=== PATIENT | male | born 1950 | race Two or more races ===

== ENCOUNTER 2023-09-23 05:30 | Day surgery (SDC) | payer OTHER ==
[2023-09-17 08:23] LABS: HEMATOCRIT 40.4 % (39.0-48.0); HEMOGLOBIN 13.7 g/dL (13-16.00); MEAN CELL VOLUME 91.5 fL (80.0-100.00); MEAN CORPUSCULAR HGB CONC 33.8 g/dl (32.0-36.0); PLATELET COUNT 227 K/uL (150-450); RED BLOOD COUNT 4.42 M/uL (4.00-6.00); RED CELL DISTRIBUTION WIDTH 13.9 % (11.5-14.5)
[2023-09-17 08:24] LABS: URINE APPEARANCE Clear; URINE BILIRRUBIN Negative (NEGATIVE); URINE BLOOD Negative; URINE COLOR Yellow; URINE GLUCOSE Negative (NEGATIVE); URINE LEUKOCYTE Negative; URINE NITRATE Negative; URINE PROTEIN Negative (NEGATIVE); URINE UROBILINOGEN 0.2 E.U./dl
[2023-09-17 08:28] LABS: URINE BACTERIA 8.8 uL (0.0-1933); URINE EPITHELIAL CELLS 3.3 uL (0.0-38.8); URINE WBC 5.4 uL (0.0-23.2)
[2023-09-17 08:43] LABS: INR 1.17; PARTIAL THROMBOPLASTIN TIME 34.4 SECONDS (22.0-34.0); PROTHROMBIN TIME 12.1 SECONDS (9.0-11.5)
[2023-09-17 09:04] LABS: ALBUMIN 3.7 gm/dL (3.4-5.0); BILIRUBIN TOTAL 0.74 mg/dL (0.3-1.2); CALCIUM 9.5 mg/dL (8.5-10.1); GFR 73.24; POTASSIUM 3.96 mEq/L (3.5-5.1); TOTAL PROTEIN 7.7 gm/dL (6.4-8.2)
[~2023-09-23 05:30] MED LIST: AMLODIPINE 2.5; COZAAR100 MG PO; FINASTERIDE5 MG PO; GLIMEPIRIDE1 M1 PO; MEMANTINE HCL10 MG PO; SYNTHROID125 MCG PO; TRAZODONE 50MG; XARELTO20 MG; [UNRECOGNIZED DRUG - OTHER]
[2023-09-23] MEDS ORDERED: CEFAZOLIN SODIUM 1,000 MG VIAL ONE (06:06)
[2023-09-23] MEDS ORDERED: BUPIVACAINE HCL/PF 0.5% 30ML ML ONE (06:57)
[2023-09-23] MEDS ORDERED: LIDOCAINE HCL 1%/Epi 20ML VIAL IJ ONE (06:57)
[2023-09-23] MEDS ORDERED: LIDOCAINE HCL/EPINEPHRINE 10MG/ML 1% 50ML IJ ONE (06:57)
[2023-09-23] MEDS ORDERED: METHYLPREDNISOLONE ACETATE 80 MG/ML VIAL ONE (06:57)
[2023-09-23] MEDS ORDERED: PERCOCET 5-3251 EACH PO (09:39)
[2023-09-23] MEDS ORDERED: KETOROLAC TROMETHAMINE 30 MG VIAL IM STA (09:42)
[2023-09-23] MEDS ORDERED: KETOROLAC TROMETHAMINE 30 MG VIAL IU STA (09:42)
[2023-09-23] MEDS ORDERED: METHYLPREDNISOLONE ACETATE 80 MG/ML VIAL IJ ONE (10:00)
[2023-09-23] MEDS ORDERED: CEFAZOLIN SODIUM 1,000 MG in DEXTROSE 5 % IN WATER 50 ML IV ONE (10:00)
== END 2023-09-23 15:15 | disposition home or self-care (01) ==
LOC: CIR.AMB 05:30
PROVIDERS: ATTEND Orthopaedic Surgery
DX: S83.282A Other tear of lateral meniscus, current injury, left knee, initial encounter (principal); M65.862 Other synovitis and tenosynovitis, left lower leg; M67.52 Plica syndrome, left knee; Z91.013 Allergy to seafood; Z88.1 Allergy status to other antibiotic agents